=== PATIENT | male | born 1950 | race Caucasian/White ===

== ENCOUNTER → 2023-08-24 | Outpatient (REF) | payer OTHER ==
[~2023-08-24] MED LIST: ALOG6.25 PO; CINN500C2 PO; ECOT81TA5 PO; GLIP-162 PO; LISI2.5T8 PO; METF-839 PO; PRES10CA2 PO; SIMV40TA20 PO; TUME1CAP PO; VITACAP8 PO; VITMTA PO
== END ==
LOC: M SMT 10:58 → MERGE 10:58
PROVIDERS: ATTEND Urology
DX: N47.1 Phimosis (principal); Z79.899 Other long term (current) drug therapy

== ENCOUNTER 2023-08-31 07:59 | Day surgery (SDC) | payer OTHER ==
[~2023-08-31] VITALS: Ht 172.7 cm; Wt 90.6 kg
[~2023-08-31 07:59] MED LIST changes: +LIDOCAINE 2% 100MG/5ML SDV (FOR ANES.) As Ordered ONE; +ONDANSETRON 4MG 2ML VIAL As Ordered ONE; +ceFAZolin SOD 2 GM in IV 1 EA IV ONE; +propofoL 200 MG/20 ML VIAL As Ordered ONE
[2023-08-31] MEDS ORDERED: LR 1,000 ML IV SCH ×2 (08:10→10:40)
[2023-08-31] MEDS ORDERED: INSULIN LISPRO (NovoLOG) PER UNIT SC PRN ×2 (09:15→11:05)
[2023-08-31] MEDS ORDERED: MIDAZOLAM INJ 2MG/2ML VIAL As Ordered ONE (09:42)
[2023-08-31] MEDS ORDERED: fentaNYL 100 MCG/2 ML INJECTION As Ordered ONE (09:42)
[2023-08-31] MEDS ORDERED: LIDOCAINE 1% SDV 30ML VIAL As Ordered ONE (09:47)
[2023-08-31] MEDS ORDERED: ACETAMINOPHEN 1000MG 100ML IV BAG As Ordered ONE (10:11)
[2023-08-31] MEDS ORDERED: oxyCODONE 5MG TAB PO PRN (10:40)
[2023-08-31] MEDS ORDERED: fentaNYL 100 MCG/2 ML INJECTION IV PRN (10:40)
[2023-08-31] MEDS ORDERED: ONDANSETRON 4MG 2ML VIAL IV PRN (10:40)
[2023-08-31] MEDS ORDERED: HYDROMORPHONE HCL 0.5 MG/ 0.5 ML SYRINGE IV PRN (10:40)
[2023-08-31] MEDS ORDERED: CEPH500C PO (10:45)
[2023-08-31] MEDS ORDERED: HYDR-3713 PO (10:45)
[2023-08-31 11:40] VITALS: BP 126/68; TEMP 97.3; O2SAT 98
== END 2023-08-31 12:12 | disposition home or self-care (01) ==
LOC: M SDC 07:59
PROVIDERS: ATTEND Urology
DX: N47.1 Phimosis (principal); E11.9 Type 2 diabetes mellitus without complications; E78.00 Pure hypercholesterolemia, unspecified; Z79.899 Other long term (current) drug therapy; Z79.82 Long term (current) use of aspirin; Z79.84 Long term (current) use of oral hypoglycemic drugs
CPT/HCPCS: 54161; 88304; J0131; J2250; J2405; J3010

== ENCOUNTER → 2025-08-14 | Outpatient (CLI) | payer OTHER ==
[~2025-08-14] MED LIST changes: +CEPH500C PO; +HYDR-3713 PO; -LIDOCAINE 2% 100MG/5ML SDV (FOR ANES.) As Ordered ONE; -ONDANSETRON 4MG 2ML VIAL As Ordered ONE; -ceFAZolin SOD 2 GM in IV 1 EA IV ONE; -propofoL 200 MG/20 ML VIAL As Ordered ONE
== END ==
LOC: M SLEEP 20:00
PROVIDERS: ATTEND Nurse Practitioner Family
DX: R06.83 Snoring (principal)